=== PATIENT | female | born 1990 | race African-American/Black ===

== ENCOUNTER 2020-03-21 17:00 | Inpatient (IN) ==
[2020-03-21] MEDS ORDERED: OXYTOCIN/0.9 % SODIUM CHLORIDE 30 UNITS/500 ML BAG IV ONE (17:45)
[2020-03-21] MEDS ORDERED: MISOPROSTOL 100 MCG TABLET VG PRN (17:45)
[2020-03-21] MEDS ORDERED: BUTORPHANOL TARTRATE 2 MG/ML VIAL IV PRN ×2 (17:45)
[2020-03-21] MEDS ORDERED: LIDOCAINE HCL 50 ML VIAL PERI PRN (17:45)
[2020-03-21] MEDS ORDERED: RINGER'S SOLUTION,LACTATED 1,000 ML IV ONE (17:45)
[2020-03-21] MEDS ORDERED: ONDANSETRON 4 MG TAB.RAPDIS PO PRN (17:45)
[2020-03-21 18:04] LABS: Hematocrit 35.6 % (37.0-47.0); Hemoglobin 11.7 gm/dL (12.5-16.0); Mean Cell Volume 87.3 fl (78-100); Mean Corpuscular Hemoglobin 28.7 pg (27-31); Mean Corpuscular Hgb Conc 32.9 g/dl (32-36); Mean Platelet Volume 10.8 fl (8-12.5); Neutrophil # 7.1 K/mm3 (1.3-6.0); Neutrophil % 76.1 % (42-75.0); Platelet Count 161 K/mm3 (150-450); Red Blood Count 4.08 M/mm3 (4.2-5.4); Red Cell Distribution Width 12.8 % (11.5-14.0); White Blood Count 9.4 K/mm3 (4.0-10.5)
[2020-03-21] MEDS: RINGER'S SOLUTION,LACTATED 1,000 ML IV PRN (20:27)
[2020-03-21 20:34] LABS: Cocaine Ur Negative (NEGATIVE); Urine Barbiturate Negative (NEGATIVE); Urine Benzodiazepines Negative (NEGATIVE); Urine Opiates Negative (NEGATIVE); Urine PCP Negative (NEGATIVE); Urine THC Negative (NEGATIVE)
[2020-03-21] MEDS ORDERED: BUPIVACAINE HCL/0.9 % NACL/PF 250 ML EP PRN (23:29)
[2020-03-21] MEDS ORDERED: ONDANSETRON HCL/PF 2 MG/ML VIAL IV PRN (23:29)
[2020-03-21] MEDS ORDERED: NALOXONE HCL 1 MG/1 ML SYRG IV PRN (23:29)
[2020-03-21] MEDS ORDERED: ACETAMINOPHEN 500 MG TABLET PO ONE (23:29)
[2020-03-21] MEDS ORDERED: fentaNYL CITRATE/PF 50 MCG/ML AMPUL IT SCH (23:30)
--- NOTE | 2020-03-22 00:50 | ANES ---
Anesthesia Pre Procedure Eval Vitals/Labs: Last Vital Signs Temp 36.7 C 03/21/20 18:00 Pulse 114 H 03/21/20 18:00 Resp 18 03/21/20 18:00 BP 128/82 03/21/20 18:00 Pulse Ox 99 03/21/20 18:00 HOME MEDICATIONS NK 03/21/20 [Last Taken Unknown] Allergies/Adverse Reactions: Allergies Allergy/AdvReac Type Severity Reaction Status Date / Time No Known Allergies Allergy Verified 03/21/20 17:48 - Planned Procedure Planned Procedure: MEDICAL INDUCTION Medication List Reviewed:: Yes Allergies Verified: Yes Medical History (Last Reviewed 03/22/20 @ 00:49 by Inder Valle CRNA) IUGR (intrauterine growth restriction) Onset Date: ~02/21/20 Abnormal uterine bleeding Onset Date: 11/20/11 , spontaneous Onset Date: ~2010 2010-D&C , 2018-d&c Anemia Onset Date: Unknown Excessive and frequent menstruation Onset Date: 11/20/11 Fatigue Onset Date: 03/11/11 Missed Onset Date: ~12/16/18 Surgical History (Last Reviewed 03/22/20 @ 00:49 by Inder Valle CRNA) H/O dilation and curettage Onset Date: Unknown 2010 History of incision and drainage Onset Date: Unknown abscess History of tonsillectomy Onset Date: Unknown Pilonidal cyst Onset Date: 07/22/17 excision - B[place] with primary closure S/P myringotomy with insertion of tube Onset Date: Unknown Status post dilation and curettage Onset Date: ~12/16/18 suction D&C [place] teeth extracted Onset Date: Unknown Family History (Last Reviewed 03/22/20 @ 00:49 by Inder Valle CRNA) Grandmother Cancer maternal - lung cancer Grandmother Diabetes Glaucoma paternal Mother Alive and well Father Alive and well - Family Anesthesia History Family History:: no untoward family reactions to anesthesia - Airway/Neck/Teeth Within Normal Limits:: Yes Teeth Condition: intact Neck Exam: full range of motion Mallampatti Score: 2 Thyromental (T-M) distance: > 6 cm Mandibulo Hyoid distance: > 3 cm - Respiratory Respiratory Physical: lungs clear Smoking Status: Current some day smoker Discussed smoking cessation including day of surgery: Yes Sleep Apnea currently treated: No Sleep Apnea by current assessment: No - Cardiovascular Tolerate Activity: Good Heart Sounds: S1 & S2, Regular - Gastrointestinal NPO since: 1999 - Anesthesia Assessment and Plan ASA Class: PS, II, E Anesthesia Type Plan: Epidural Planned difficult intubation/equipment available: No
--- NOTE | 2020-03-22 00:50 | ANES ---
Post Anesthesia Discharge - Transfer of Care Transfer of Care handoff given to nurse: Yes - Anesthesia Post Op Note Anesthesia Post Op Note: Care transferred to OB RN
--- NOTE | 2020-03-22 00:51 | ANES ---
Post Anesthesia Assessment - Vital Signs Vitals: Last Vital Signs Temp 36.7 C 03/21/20 18:00 Pulse 114 H 03/21/20 18:00 Resp 18 03/21/20 18:00 BP 128/82 03/21/20 18:00 Pulse Ox 99 03/21/20 18:00 Airway Patency: Normal - Mental Status Level Of Consciousness: Awake - Pain Level Pain Score: 1 - N/V Assessment Nausea/Vomiting Presence: None Dehydration:: No
--- NOTE | 2020-03-22 00:52 | ANES ---
Anesthesia Procedure Note Procedure Note: ANESTHESIA PROCEDURE NOTE Date of Procedure: 03/22/2020 Time of procedure: 29. Performed by: Mati Valle CRNA Parts Counterperson: None. Preprocedure diagnosis: Active labor. Post procedure diagnosis: Same. Procedure: Insertion of labor epidural. Indications: The patient is a 29-year-old prima para female in active labor requesting labor epidural for pain management. Findings: See below. Details of the procedure: The patient was placed in a sitting position. Back was prepped with DuraPrep. Patient was then draped in a sterile fashion. Lidocaine 1% was infiltrated to the skin and subcutaneous tissues at the level of the L3 4 interspace. The epidural space was identified using a 18-gauge Tuohy needle with [id number] technique. 20 mcg fentanyl was given intrathecally using a 27 ga. spinal needle. Epidural catheter was inserted without difficulty. Negative test dose was elicited using 5 mL of 1.5% preservative-free lidocaine plus epinephrine 1 200,000. The epidural catheter was then taped and secured in place. EBL: Minimal. Fluids: N/A. Specimen: N/A. Post procedure condition: The patient tolerated the procedure well. No complications were noted. Thank you for this consultation. Ruvalcaba CRNA
--- NOTE | 2020-03-22 02:53 | HP ---
Chief Complaint - Chief Complaint Date of Service: 03/22/20 Time of Service: 02:44 Chief Complaint: Medical induction of labor History of Present Illness: 29 year old at 38w 0d who presented to labor and delivery for a medical IOL for IUGR with EFW less than the third percentile. She reports regular ctx on pitocin. She denies vb or lof. Fetus is active. Medical History (Last Reviewed 03/22/20 @ 02:46 by Dinorah Curran MD) IUGR (intrauterine growth restriction) Onset Date: ~02/21/20 Abnormal uterine bleeding Onset Date: 11/20/11 , spontaneous Onset Date: ~2010 2010-D&C , 2018-d&c Anemia Onset Date: Unknown Excessive and frequent menstruation Onset Date: 11/20/11 Fatigue Onset Date: 03/11/11 Missed Onset Date: ~12/16/18 Surgical History: Surgical History (Last Reviewed 03/22/20 @ 02:46 by Dinorah Curran MD) H/O dilation and curettage Onset Date: 2010 History of incision and drainage Onset Date: Unknown abscess History of tonsillectomy Onset Date: Unknown Pilonidal cyst Onset Date: 07/22/17 excision - [place] with primary closure S/P myringotomy with insertion of tube Onset Date: Unknown Status post dilation and curettage Onset Date: ~12/16/18 suction D&C [place] teeth extracted Onset Date: Unknown Family History: Family History (Last Reviewed 03/22/20 @ 02:46 by Dinorah Curran MD) Grandmother Cancer maternal - lung cancer Grandmother Diabetes Glaucoma paternal Mother Alive and well Father Alive and well Social History: (Last Reviewed 03/22/20 @ 02:47 by Dinorah Curran MD) Social History: Marital status: Single household members: significant other number of children: 0 current occupational status: employed current occupation: [employer] Highest level of school completed/degree received: some college, no degree Sexually Active: Yes Service: No Tobacco: Smoking Status: Current some day smoker tobacco type: cigarettes Smoking cigarettes per day: 5 how long ago did patient quit smokin12/14/18 Alcohol: alcohol intake: former alcohol intake frequency: holiday/special occasion details: none with Substance Use: substance use type: former substance user Dietary Habits: caffeine: Yes caffeine comment: 1 daily Type: carbonated beverages Exercise: Physical activity type: walking How many days of moderate to strenuous exercise, like a brisk walk, did you do in the last 7 days: 7 frequency: daily Review Of Systems (GEN) - Review of Systems Generalized/Overall Review: Present: No Symptoms Reported Genitourinary: Present: Other - contractions Misc: All systems neg except as marked Immunizations: IMMUNIZATION HX Immunizations Up to Date Yes History of Influenza Vaccine No Hx Pneumococcal Vaccination No Allergies/Adverse Reactions: Allergies Allergy/AdvReac Type Severity Reaction Status Date / Time No Known Allergies Allergy Verified 03/21/20 17:48 Home Medications: HOME MEDICATIONS NK 03/21/20 [Last Taken Unknown] Exam - Exam Vital Signs: Vital Signs - Last Taken Temp 36.7 C 03/21/20 18:00 Pulse 114 H 03/21/20 18:00 Resp 18 03/21/20 18:00 BP 128/82 03/21/20 18:00 Pulse Ox 99 03/21/20 18:00 Constitutional: Present: Alert, Oriented x3, Cooperative, No distress ENT Exam: Present: hearing grossly normal Eye Exam: bilateral eye: normal inspection Neck: Present: normal inspection Back Exam: Present: normal inspection Breasts: Present: Exam deferred Respiratory: Present: lungs clear, normal breath sounds, no respiratory distress Cardiovascular/Chest: Present: regular rate, rhythm Abdomen: Present: soft, nontender, nondistended /Rectal: Present: Other - 4/50/-2 AROM for bloody fluid Extremity: Present: non-tender, no calf tenderness Skin Exam: Present: normal color, warm/dry, no cyanosis Neurologic: Present: alert, normal mood/affect, oriented x 3 Appearance: Present: appropriate appearance, appropriate insight, neat, no memory impairment Eye contact: Present: cooperative, good eye contact, normal speech Thoughts: Present: normal thought pattern Diagnostic Studies: Abnormal Lab Results 03/21/20 Range/Units 17:57 RBC 4.08 L (4.2-5.4) M/mm3 Hgb 11.7 L (12.5-16.0) gm/dL Hct 35.6 L (37.0-47.0) % Immature Gran # (Auto) 0.04 H (0.000-0.0310) K/mm3 Neutrophils % 76.1 H (42-75.0) % Lymphocytes % 16.1 L (20-51) % Neutrophils # 7.1 H (1.3-6.0) K/mm3 Laboratory Results WBC 9.4 K/mm3 (4.0-10.5) 03/21/20 17:57 RBC 4.08 M/mm3 (4.2-5.4) L 03/21/20 17:57 Hgb 11.7 gm/dL (12.5-16.0) L 03/21/20 17:57 Hct 35.6 % (37.0-47.0) L 03/21/20 17:57 MCV 87.3 fl (78-100) 03/21/20 17:57 MCH 28.7 pg (27-31) 03/21/20 17:57 MCHC 32.9 g/dl (32-36) 03/21/20 17:57 RDW 12.8 % (11.5-14.0) 03/21/20 17:57 Plt Count 161 K/mm3 (150-450) 03/21/20 17:57 MPV 10.8 fl (8-12.5) 03/21/20 17:57 Immature Gran % (Auto) 0.40 % (0.001-0.429) 03/21/20 17:57 Immature Gran # (Auto) 0.04 K/mm3 (0.000-0.0310) H 03/21/20 17:57 Neutrophils % 76.1 % (42-75.0) H 03/21/20 17:57 Lymphocytes % 16.1 % (20-51) L 03/21/20 17:57 Monocytes % 6.7 % (0.0-9) 03/21/20 17:57 Eosinophils % 0.4 % (0.0-3.0) 03/21/20 17:57 Basophils % 0.3 % (0.0-1.0) 03/21/20 17:57 Nucleated RBC % 0.0 k/mm3 (0-1) 03/21/20 17:57 Neutrophils # 7.1 K/mm3 (1.3-6.0) H 03/21/20 17:57 Lymphocytes # 1.51 k/mm3 (1.5-3.5) 03/21/20 17:57 Monocytes # 0.6 k/mm3 (0.0-1.0) 03/21/20 17:57 Eosinophils # 0.0 k/mm3 (0.0-0.7) 03/21/20 17:57 Absolute Basophils 0.0 k/mm3 (0.0-0.1) 03/21/20 17:57 Urine Opiates Screen Negative (NEGATIVE) 03/21/20 19:45 Barbiturate Screen Negative (NEGATIVE) 03/21/20 19:45 Ur Phencyclidine Scrn Negative (NEGATIVE) 03/21/20 19:45 Urine Amphetamine Negative (NEGATIVE) 03/21/20 19:45 U Benzodiazepines Scrn Negative (NEGATIVE) 03/21/20 19:45 Urine Cocaine Screen Negative (NEGATIVE) 03/21/20 19:45 Urine Marijuana (THC) Negative (NEGATIVE) 03/21/20 19:45 Blood Type O Positive 03/21/20 17:57 Antibody Screen Negative 03/21/20 17:57 Assessment/Plan - Narrative Narrative: 29 year old at 38w 0d 1. Medical IOL due to IUGR: the patient received one dose of misoprostol followed by pitocin administration. AROM performed for augmentation of labor 2. GBS negative 3. History of thrombocytopenia this : resolved on admission to L&D 4. History of THC use: UDS negative on admission to L&D - Assessment/Plan (1) 38 weeks gestation of Problem: Acute (2) Encounter for planned induction of labor Problem: Acute (3) IUGR (intrauterine growth restriction) Problem: Acute (4) Anemia Problem: Acute Qualifiers: Anemia type: iron deficiency (5) Thrombocytopenia affecting Problem: Acute (6) Rh(D) positive Problem: Acute (7) Septate uterus Problem: Acute (8) History of marijuana use Problem: Acute
--- NOTE | 2020-03-22 03:13 | PN ---
Progess Note - Interim Date: 03/22/20 Time: 03:12 Narrative: 03/22/20 03:12 IUPC placed at the time of AROM Will start amnioinfusion for recurrent variable decelerations
[2020-03-22] MEDS: RINGER'S SOLUTION,LACTATED 1,000 ML IV PRN (05:47)
[2020-03-22] MEDS ORDERED: SENNOSIDES 8.6 MG TABLET PO PRN (11:25)
[2020-03-22] MEDS ORDERED: HYDROcodone/ACETAMINOPHEN 1 EACH TABLET PO PRN ×2 (11:25)
[2020-03-22] MEDS ORDERED: GLYCERIN/WITCH HAZEL LEAF 40 APPL BOX TP PRN (11:25)
[2020-03-22] MEDS ORDERED: diphenhydrAMINE HCL 25 MG CAPSULE PO PRN (11:25)
[2020-03-22] MEDS ORDERED: HYDROCORTISONE 30 APPL TUBE TP PRN (11:25)
[2020-03-22] MEDS ORDERED: OXYTOCIN/0.9 % SODIUM CHLORIDE 30 UNITS/500 ML BAG IV ONE (11:25)
[2020-03-22] MEDS ORDERED: BENZOCAINE/MENTHOL 81 SPRAY CAN TP PRN (11:25)
[2020-03-22] MEDS ORDERED: BISACODYL 10 MG SUPP.RECT RC PRN (11:25)
--- NOTE | 2020-03-22 11:50 | OR ---
Vacuum-Assist Vaginal Delivery Date:: 03/22/20 Time:: 11:49 Pre Op Diagnosis/Indication for use:: Prolonged second stage Heart Rate Interpretation:: Nonreassuring EFW:: 2600 grams Station:: + 5 Position of the head: OA Cervix:: The cervix was completely dilated and effaced. Maternal- size appropriate for application. The bladder was emptied. Counseling:: Patient counseling: Indications discussed and questions answered. The patient consented to operative delivery. - Details of Procedure: Cup Placement:: Flexion point identified. Cup choice appropriate for application site. Maternal tissue excluded from vacuum cup. Station at application:: + 5 Position:: OA Anesthesia Type: Epidural - Vacuum Application: Vacuum Used:: Mushroom Total Time of vacuum applications (minutes):: 1 Maximum vacuum achieved: cm H Number of pulls/contractions:: 2 Number of involuntary releases:: 1 Vacuum event:: The vacuum was reduced between contractions. There was advancement in station with each pull. - Post Procedure Eval: Sex: Female Weight (Grams): 2,244 Delivery Date: 03/22/20 Delivery Time: 10:18 Score 1 min: 9 Score 5 min: 9 Extraction successful:: Yes Amniotic Fluid Color: Bloody Placenta Delivery: Spontaneous injury/anomalies:: No Maternal EBL:: 350 mL Shoulder Dystocia:: No Nuchal Cord: N/A - No lacerations
[2020-03-22] MEDS: IBUPROFEN 800 MG TABLET PO PRN (20:44)
[2020-03-22] MEDS: DOCUSATE SODIUM 100 MG CAPSULE PO SCH (20:44)
[2020-03-23] MEDS: DOCUSATE SODIUM 100 MG CAPSULE PO SCH ×2 (07:59→22:50)
[2020-03-23] MEDS: IBUPROFEN 800 MG TABLET PO PRN ×2 (07:59→22:50)
--- NOTE | 2020-03-23 08:51 | PN ---
Subjective - Date and Time Seen Date: 03/23/20 Time: 08:49 Subjective Narrative: Patient without complaints Objective Objective Narrative: See vital signs - Review of Systems Generalized/Overall Review: Reports: No Symptoms Reported Misc: All systems neg except as marked - Vitals Vitals: Last Vital Signs Temp 36.5 C 03/23/20 08:18 Pulse 100 03/23/20 08:18 Resp 18 03/23/20 08:18 BP 129/74 03/23/20 08:18 Pulse Ox 100 03/23/20 08:18 - Exam Constitutional: Present: Alert, Oriented x3, Cooperative, No distress Abdomen: Present: soft, nontender, nondistended - fundus is firm Extremity: Present: non-tender, no calf tenderness Neurologic: Present: alert, normal mood/affect, oriented x 3 Appearance: Present: appropriate appearance, appropriate insight, neat, no memory impairment Eye contact: Present: cooperative, good eye contact, normal speech Thoughts: Present: normal thought pattern Cauti Physician Documentation - Urinary Catheter Management Urethral (Ham) Urethral Indwelling: No Date of Insertion: 03/22/20 Time of Insertion: 01:10 Date of Removal: 03/22/20 Time of Removal: 08:55 Assessment/Plan Plan Narrative: PPD 1 s/p VAVD Doing well Discharge tomorrow - Problems/Diagnosis (1) 38 weeks gestation of Problem: Acute (2) Encounter for planned induction of labor Problem: Acute (3) IUGR (intrauterine growth restriction) Problem: Acute (4) Anemia Problem: Acute Qualifiers: Anemia type: iron deficiency (5) Thrombocytopenia affecting Problem: Acute (6) Rh(D) positive Problem: Acute (7) Septate uterus Problem: Acute (8) History of marijuana use Problem: Acute
[2020-03-24 06:50] VITALS: BP 129/88
[2020-03-24] MEDS: DOCUSATE SODIUM 100 MG CAPSULE PO SCH (09:11)
--- NOTE | 2020-03-24 09:11 | PN ---
Subjective - Date and Time Seen Date: 03/24/20 Time: 09:09 Subjective Narrative: Patient without complaints Objective Objective Narrative: See vital signs - Review of Systems Generalized/Overall Review: Reports: No Symptoms Reported Misc: All systems neg except as marked - Vitals Vitals: Last Vital Signs Temp 36.4 C 03/24/20 06:45 Pulse 93 03/24/20 06:45 Resp 18 03/24/20 06:45 BP 129/88 03/24/20 06:45 Pulse Ox 100 03/24/20 06:45 - Exam Constitutional: Present: Alert, Oriented x3, Cooperative, No distress ENT Exam: Present: hearing grossly normal Neck: Present: normal inspection Abdomen: Present: soft, nontender, nondistended - fundus is firm Extremity: Present: non-tender, no calf tenderness Skin Exam: Present: normal color, warm/dry, no cyanosis Neurologic: Present: alert, normal mood/affect, oriented x 3 Appearance: Present: appropriate appearance, appropriate insight, neat, no memory impairment Eye contact: Present: cooperative, good eye contact, normal speech Thoughts: Present: normal thought pattern, no apparent hallucination Cauti Physician Documentation - Urinary Catheter Management Urethral (Ham) Urethral Indwelling: No Date of Insertion: 03/22/20 Time of Insertion: 01:10 Date of Removal: 03/22/20 Time of Removal: 08:55 Assessment/Plan Plan Narrative: PPD 2 s/p VAVD Doing well Discharge today - Problems/Diagnosis (1) 38 weeks gestation of Problem: Acute (2) Encounter for planned induction of labor Problem: Acute (3) IUGR (intrauterine growth restriction) Problem: Acute (4) Anemia Problem: Acute Qualifiers: Anemia type: iron deficiency (5) Thrombocytopenia affecting Problem: Acute (6) Rh(D) positive Problem: Acute (7) Septate uterus Problem: Acute (8) History of marijuana use Problem: Acute
--- NOTE | 2020-03-24 09:13 | DS ---
OB Discharge Summary (1) 38 weeks gestation of Status: Acute (2) Encounter for planned induction of labor Status: Acute (3) IUGR (intrauterine growth restriction) Status: Acute (4) Anemia Status: Acute Qualifiers: Anemia type: iron deficiency (5) Thrombocytopenia affecting Status: Resolved (6) Rh(D) positive Status: Acute (7) Septate uterus Status: Acute (8) History of marijuana use Status: Acute Delivery Date: 03/22/20 Delivery Time: 10:18 :: 3 Para:: 1 Gestational weeks:: 38 Gestational days:: 0 Intrapartum Procedures: Anesthesia - Epidural, Vacuum-Assisted Procedures: None /OP Complications: No Complications Discharge Diagnosis: Term -Delivered, Other - IUGR - Discharge Information Date of Discharge: 03/24/20 Hospital Course: The patient presented to L&D for a medical IOL due to IUGR. She had a VAVD. There were no complications Discharge Location: Home Disposition: Home self-care Condition: Good Activity on Discharge:: Activity as tolerated, Pelvic Rest Discharge Diet: General/regular food Additional Patient Instructions (free text): [place], eduarda follow up appointment is April 18 at 3:[address] Curran. Zohaib follow up appointment is Wednesday at 1:[address] Rolon. Please arrive by 12:45 for paperwork. Complete Home Medications List: Complete Home Medication List: NK 03/21/20 - Plan Discharge to:: Home Comment:: Routine Discharge Instructions Follow up in office in:: Other - 4 weeks - Information Weight (Grams): 2,244 Infant Sex: Female Score 1 min: 9 Score 5 min: 9 Infant Complications: Multiple Late Decels, Multiple Variable Decels Other Complications: IUGR, hypoglycemia, hyperbilirubinemia
== END 2020-03-24 14:00 | disposition home or self-care (01) | DRG 807 ==
LOC: OB 17:40
PROVIDERS: ADMIT Obstetrics & Gynecology; ATTEND Obstetrics & Gynecology